=== PATIENT | male | born 1945 | race Caucasian/White ===

== ENCOUNTER 2018-10-23 08:12 | Outpatient (CLI) | payer MEDICARE ==
--- NOTE | 2018-10-23 10:27 | MRI ---
MRI OF THE LUMBAR SPINE WITH AND WITHOUT CONTRAST: Date: 10/23/18 COMPARISON: None. HISTORY: Chronic back pain with bilateral leg numbness and leg tingling for months. TECHNIQUE: Multiplanar, multisequence MR imaging of the lumbar spine provided with and without contrast. FINDINGS: The sagittal STIR imaging demonstrates no focal area of osseous narrow edema. There is mild edematous degenerative end plate change present at L4-5. Vertebral body height and alignment is normal within the lumbar spine. On the basis of five lumbar-ty pe vertebral bodies, the conus medullaris terminates at T12. T12-L1: Intervertebral disc height and signal intensity appears within normal limits. No central can al or neural foraminal stenosis. L1-2: Intervertebral disc height and signal intensity within normal limits. No central canal or neur al foraminal stenosis. L2-3: Disc desiccation. No central canal or neural foraminal stenosis. Intervertebral disc height is normal. L3-4: Disc desiccation. Mild disc bulge with no central canal or neural foraminal stenosis. L4-5: Disc space narrowing, disc desiccation, and disc bulge. There is a disc herniation in the left paracentral region with inferior migration. This left paracentral disc herniation measures approxima tely 7-8 mm in craniocaudal dimension. There is an associated mild degree of left lateral recess sten osis. There is no significant neural foraminal stenosis on either side. L5-S1: Disc space narrowing, disc desiccation, and minimal disc bulge. No significant central canal or neural foraminal stenosis. The imaged retroperitoneal structures are unremarkable. Postcontrast imaging demonstrates no abnormal enhancement involving the contents of the thecal sac, t he intervertebral discs, or the imaged osseous structures. IMPRESSION: Disc herniation with inferior migration in the left paracentral region at L4-5 with associated left l ateral recess stenosis. POS: ADRIEL
== END 2018-10-23 08:13 | disposition home or self-care (01) ==
LOC: SCSMRI 08:12
PROVIDERS: ATTEND Internal Medicine
DX: M54.5 Low back pain (principal); M51.26 Other intervertebral disc displacement, lumbar region; M48.061 Spinal stenosis, lumbar region without neurogenic claudication
CPT/HCPCS: 72158

== ENCOUNTER 2018-12-26 07:47 | Outpatient (CLI) | payer MEDICARE ==
--- NOTE | 2018-12-26 09:18 | MRI ---
MRI LUMBAR SPINE WITHOUT CONTRAST: Date: 12/26/18 HISTORY: Persistent low back pain. COMPARISON: MRI lumbar spine dated 10/23/18. FINDINGS: The aortic contour is nonaneurysmal. No retroperitoneal adenopathy. No hydronephrosis. No marrow infiltrative process. Conus medullaris terminates near the superior end plate of L1. Levels are as follows: L1-2: Normal disc. No neural foraminal or spinal canal narrowing. L2-3: Mild disc desiccation. No neural foraminal or spinal canal narrowing. Very small bilateral sub foraminal posterior disc osteophyte complexes. L3-4: Mild disc desiccation. Very small bilateral posterior subforaminal disc osteophyte complexes. This is superimposed on a circumferential disc bulge. No significant neural foraminal or spinal canal narrowing. L4-5: There is moderate degenerative disc space narrowing. There is circumferential disc bulge with a superimposed left paracentral disc herniation. Disc herniation does cause some narrowing of the spi nal canal, as well as left outer recess and neural foraminal narrowing, moderate, with abutment of th e left exiting and traversing nerve roots. There is also moderate right-sided neural foraminal narrow ing with abutment of the right exiting and traversing nerve root. There also appears to be abutment o f the left S1 nerve root at L4-5. L5-S1: Moderate degenerative disc space height loss. There is a circumferential disc bulge. Mild fac et arthropathy. Mild bilateral neural foraminal narrowing. No significant spinal canal narrowing. IMPRESSION: Circumferential disc bulge at L4-5 with superimposed left paracentral lateral recess and subforaminal disc herniation with inferior migration causing neural foraminal stenosis with abutment of the exiti ng and traversing nerve roots. Findings are similar. POS: CET
== END 2018-12-26 07:48 | disposition home or self-care (01) ==
LOC: TBSIIMAG 07:47
PROVIDERS: ATTEND Anesthesiology Pain Medicine
DX: M51.16 Intervertebral disc disorders with radiculopathy, lumbar region (principal); M48.061 Spinal stenosis, lumbar region without neurogenic claudication
CPT/HCPCS: 72148

== ENCOUNTER 2019-01-16 05:51 | Day surgery (SDC) | payer MEDICARE ==
[2019-01-07 12:19] VITALS: BMI 24.3
--- NOTE | 2019-01-15 16:10 | HP ---
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 He has had an MRI scan at [place], that reveals L4 disk herniation with inferior migration at L4 impinging the descending L5 nerve root that fits well with his symptoms. He prefers to move forward with surgery if possible. PAST MEDICAL HISTORY: Significant for migraine headaches, heart disease, history of kidney stones, and of normal TSH. PAST SURGICAL HISTORY: Tonsillectomy and adenoidectomy, appendectomy, cholecystectomy, right shoulder tenodesis, and bilateral herniorrhaphy. MEDICATIONS: Pantoprazole. ALLERGIES: NO KNOWN DRUG ALLERGIES. PHYSICAL EXAMINATION: The patient is alert and oriented x3. Gait is mildly antalgic. Lower extremity motor exam is normal. Positive left straight leg raise. ASSESSMENT: Lumbar radiculopathy. PLAN: Dr. Ledesma met with the patient, reviewed imaging, and advocated for a left L4 diskectomy. He explained to the patient the risks, benefits, and alternatives of the procedure. The patient expressed understanding and elected to move forward with surgery as discussed. I do believe that he is mentally competent and capable of making medical decisions for himself. We will move forward with surgery as planned. Job ID: [id number]
[2019-01-16] MEDS ORDERED: Lidocaine 2% Jelly 5 ML TUBE ONE (05:55)
[2019-01-16] MEDS ORDERED: Fentanyl 100 MCG/2 ML VIAL ONE ×2 (05:55→08:49)
[2019-01-16] MEDS ORDERED: Thrombin 5000 UNITS/5 ML VIAL ONE (06:20)
[2019-01-16] MEDS ORDERED: Bupivacaine HCl 0.5%/Epinephrine 1:200,000/PF 30 ml Vial ONE (06:20)
--- NOTE | 2019-01-16 09:19 | OP ---
DATE OF PROCEDURE: 01/16/2019 BOTTLE INSPECTOR: Liam Gramajo PA-C INDICATION: Pain. DIAGNOSIS: L5 radiculopathy. PROCEDURE PERFORMED: Left L4 diskectomy. ANESTHESIA: General. DESCRIPTION OF PROCEDURE: The patient was brought into the operating room and placed under general anesthesia. He was flipped from the supine to prone position on the operating room table. A linear incision was planned over the L4-L5 segment. After prepping and draping and after an appropriate preoperative pause, the incision was created. The soft tissues were swept left of midline. A self-retaining retractor was placed in the wound for optimal exposure. After confirming the appropriate level with C-arm fluoroscopy, a high-speed cutting drill bit as well as 2, 3, and 4 mm Kerrisons were used to perform a laminectomy along the inferior aspect of L4 and the superior aspect of L5. The descending L5 nerve root was identified and mobilized medially. There was inferiorly migrated disk fragment identified in this area. An 11 blade knife was used to perform an annulotomy where the disk material was removed until the descending L5 nerve root was well decompressed. The wound was then irrigated. Hemostasis was maintained throughout. The wound was then closed in anatomic layers and a pressure dressing was applied. There were no known procedural complications. Job ID: [id number] [facility]
[2019-01-16] MEDS ORDERED: Acetaminophen/Codeine 30-300mg Tablet ONE (10:23)
[2019-01-16] MEDS ORDERED: Rocuronium Bromide 10 MG/ML (10ML VIAL) ONE (10:31)
[2019-01-16] MEDS ORDERED: Glycopyrrolate 0.2 MG/ML 5 ML SYRINGE ONE (10:31)
[2019-01-16] MEDS ORDERED: PROPOFOL 200 MG/20 ML VIAL ONE (10:31)
[2019-01-16] MEDS ORDERED: Lidocaine 1% PF 5 ML VIAL ONE (10:31)
[2019-01-16] MEDS ORDERED: Dexamethasone 20 MG/5 ML VIAL ONE (10:31)
[2019-01-16] MEDS ORDERED: Esmolol 100 MG/10 ML VIAL ONE (10:31)
[2019-01-16] MEDS ORDERED: Ondansetron PF 4 MG/2 ML Vial ONE (10:31)
[2019-01-16] MEDS ORDERED: ePHEDrine 50 MG/ML VIAL ONE (10:31)
== END 2019-01-16 10:45 | disposition home or self-care (01) ==
LOC: SDC 05:51
PROVIDERS: ATTEND Neurological Surgery
PROC: 0SB20ZZ Excision of Lumbar Vertebral Disc, Open Approach (ICD-10-PCS; principal; 2019-01-16)
PROC: 01NB0ZZ Release Lumbar Nerve, Open Approach (ICD-10-PCS; 2019-01-16)
DX: M51.16 Intervertebral disc disorders with radiculopathy, lumbar region (principal); G43.909 Migraine, unspecified, not intractable, without status migrainosus; I47.1 Supraventricular tachycardia; Z79.899 Other long term (current) drug therapy
CPT/HCPCS: 76000; J0670; J3010

== ENCOUNTER 2019-01-18 09:08 | Emergency (ER) | payer MEDICARE | END 2019-01-18 10:09 | disposition home or self-care (01) | LOC: SCSER 09:08 | DX: K59.09 Other constipation (principal); K64.4 Residual hemorrhoidal skin tags; K21.9 Gastro-esophageal reflux disease without esophagitis; Z79.899 Other long term (current) drug therapy | CPT/HCPCS: 99283 ==

== ENCOUNTER 2020-06-20 09:01 | Outpatient (CLI) | payer MEDICARE ==
--- NOTE | 2020-06-20 10:10 | RAD ---
CHEST 2 VIEWS: HISTORY: Dyspnea. COMPARISON: 03/17/2020. FINDINGS: Heart size is normal. The lungs are clear. IMPRESSION: No significant acute intrathoracic disease. Stable from prior study. POS: RRE
== END 2020-06-20 09:02 | disposition home or self-care (01) ==
LOC: BICRAD 09:01
PROVIDERS: ATTEND Internal Medicine Critical Care Medicine
DX: R06.00 Dyspnea, unspecified (principal)
CPT/HCPCS: 71046

== ENCOUNTER 2023-06-27 08:37 | Outpatient (CLI) | payer MEDICARE | END 2023-06-27 08:38 | disposition home or self-care (01) | LOC: RAD 08:37 | PROVIDERS: ATTEND Internal Medicine Critical Care Medicine | DX: R06.00 Dyspnea, unspecified (principal) | CPT/HCPCS: 71046 ==